=== PATIENT | female | born 2000 | race African-American/Black ===

== ENCOUNTER 2021-01-16 09:10 | Inpatient (IN) | payer OTHER ==
[~2021-01-16 09:10] MED LIST: Bupivacaine 0.25% HCL 30 ML VIAL ONE
[2021-01-16 10:38] VITALS: BMI 25.9
[2021-01-16] MEDS ORDERED: Diphenoxylate HCl/Atropine Tablet PO PRN (11:23)
[2021-01-16] MEDS ORDERED: Misoprostol 200 MCG TAB PR PRN (11:23)
[2021-01-16] MEDS ORDERED: HYDROcodone/Acetaminophen 5/325 mg Tablet PO PRN ×3 (11:23→20:55)
[2021-01-16] MEDS ORDERED: Promethazine HCl 25 MG/ML VIAL IM PRN ×3 (11:23→20:55)
[2021-01-16] MEDS ORDERED: Ondansetron PF 4 MG/2 ML Vial IVP PRN ×3 (11:23→20:55)
[2021-01-16] MEDS ORDERED: Lidocaine 1% (PF) 30 ML VIAL SC PRN (11:23)
[2021-01-16] MEDS ORDERED: hydrALAZINE 20 MG/ML VIAL SLOW IVP PRN ×2 (11:23→20:55)
[2021-01-16] MEDS ORDERED: Methylergonovine 0.2 MG/ML VIAL IM PRN (11:23)
[2021-01-16] MEDS ORDERED: Ibuprofen 800 MG TAB PO PRN (11:23)
[2021-01-16] MEDS ORDERED: Carboprost 250 MCG/ML AMP IM PRN (11:23)
[2021-01-16] MEDS ORDERED: Acetaminophen 500 MG TAB PO PRN (11:23)
[2021-01-16 11:25] LABS: Hemoglobin 9.3 g/dL (12.0-15.5); Mean Corpuscular HGB CONC 30.9 g/dL (32.0-36.0); Mean Corpuscular Hemoglobin 23.8 pg (27.0-33.0); Mean Platelet Volume 10.6 fl (7.4-10.4); Platelet Count 261 10x3/uL (150-450); RBC Distribution Width 15.1 % (11.5-14.5); Red Blood Cell (RBC) Count 3.91 10x6/uL (3.90-5.03); White Blood Cell (WBC) Count 14.2 10x3/uL (3.5-10.5)
[2021-01-16] MEDS ORDERED: NS w/ Oxytocin 30 units 500 ML IV SCH ×3 (11:30→20:55)
[2021-01-16] MEDS ORDERED: Lactated Ringer's 1,000 ML IV SCH (11:30)
[2021-01-16] MEDS ORDERED: NS w/ Oxytocin 30 units 500 ML IVPB SCH (11:30)
[2021-01-16] MEDS: Butorphanol Tartrate 1 MG/ML VIAL SLOW IVP PRN ×2 (11:49→13:00)
[2021-01-16 12:07] LABS: Hep B Surf Ag Non-Reactive S/CO (NonReactive)
[2021-01-16 12:08] LABS: Syphilis Antibody Nonreactive (Nonreactive); Syphilis Antibody Index 0.04 S/CO (<1.00 Non-Reactive)
[2021-01-16 12:49] LABS: SARS-CoV-2 NAA Rapid Test DETECTED (NotDetected)
[2021-01-16] MEDS ORDERED: Fentanyl 2 mcg/Bup 0.1% Cadd 100 ML ONE (13:07)
[2021-01-16] MEDS ORDERED: Lactated Ringer's 500 ML IV PRN (13:56)
[2021-01-16] MEDS ORDERED: Hydrocerin (Eucerin) Cream 120 gm Jar TOP PRN (13:56)
[2021-01-16] MEDS ORDERED: Acetaminophen 325 MG TAB PO PRN (13:56)
[2021-01-16] MEDS ORDERED: diphenhydrAMINE 50 MG/ML VIAL IVP PRN (13:56)
[2021-01-16] MEDS ORDERED: Naloxone HCl 0.4 mg/ml Vial IVP PRN ×2 (13:56)
[2021-01-16] MEDS ORDERED: ePHEDrine Sulfate 50 MG/10 ML VIAL SLOW IVP PRN (13:56)
[2021-01-16] MEDS ORDERED: Fentanyl 2 mcg/Bupivacaine 0.1% Cassette 100 ML EPIDURAL SCH (14:00)
[2021-01-16] MEDS ORDERED: Communication Order-Pharmacy FS PRN (14:00)
[2021-01-16] MEDS ORDERED: Oxytocin 10 UNITS/ML VIAL ONE (17:48)
[2021-01-16] MEDS ORDERED: diphenhydrAMINE 25 MG CAP PO PRN (20:55)
[2021-01-16] MEDS ORDERED: Boostrix 0.5 ML (Tdap) VIAL IM ONE (20:55)
[2021-01-16] MEDS ORDERED: Bisacodyl 10 MG SUPP PR PRN (20:55)
[2021-01-16] MEDS ORDERED: Milk Of Magnesia 30 ML UDCUP PO PRN (20:55)
[2021-01-16] MEDS ORDERED: Lanolin Ointment 7 GM TUBE TOP PRN (20:55)
[2021-01-16] MEDS: Docusate Calcium (SURFAK) 240 MG CAP PO SCH (21:36)
[2021-01-16] MEDS: Ibuprofen 800 MG TAB PO SCH (21:37)
[2021-01-17] MEDS ORDERED: Famotidine 20 MG TAB PO SCH (01:15)
[2021-01-17] MEDS: Ibuprofen 800 MG TAB PO SCH ×3 (04:58→21:10)
[2021-01-17] MEDS: Docusate Calcium (SURFAK) 240 MG CAP PO SCH ×2 (08:17→21:10)
[2021-01-17] MEDS: Famotidine 20 MG TAB PO SCH ×2 (08:17→21:10)
[2021-01-17] MEDS: Prenatal Vitamin 1 TAB PO SCH (08:17)
[2021-01-17] MEDS: Ferrous Sulfate 325 MG TAB PO SCH ×2 (08:17→17:43)
[2021-01-17] MEDS: Benzocaine-Menthol 82.5 ML CAN TOP PRN ×2 (08:21→23:33)
[2021-01-18] MEDS: Ibuprofen 800 MG TAB PO SCH ×2 (05:05→17:30)
[2021-01-18] MEDS: Ferrous Sulfate 325 MG TAB PO SCH ×2 (17:30→18:40)
[2021-01-18] MEDS: Docusate Calcium (SURFAK) 240 MG CAP PO SCH ×2 (18:40→21:46)
[2021-01-18] MEDS: Famotidine 20 MG TAB PO SCH ×2 (18:40→21:46)
[2021-01-18] MEDS: Prenatal Vitamin 1 TAB PO SCH (18:40)
[2021-01-19] MEDS: Ibuprofen 800 MG TAB PO SCH ×2 (00:53→03:11)
[2021-01-19 07:58] VITALS: BP 118/66; TEMP 98.8
[2021-01-19] MEDS: Ferrous Sulfate 325 MG TAB PO SCH (08:34)
[2021-01-19] MEDS: Docusate Calcium (SURFAK) 240 MG CAP PO SCH (08:34)
[2021-01-19] MEDS: Prenatal Vitamin 1 TAB PO SCH (08:35)
[2021-01-19] MEDS: Famotidine 20 MG TAB PO SCH (08:35)
== END 2021-01-19 13:15 | disposition home or self-care (01) | DRG 805 ==
LOC: CSHLD/OP 09:10 → CSHLD 17:31 → CSHPP 20:46
PROVIDERS: ADMIT Family Medicine; ATTEND Family Medicine
PROC: 10E0XZZ Delivery of Products of Conception, External Approach (ICD-10-PCS; principal; 2021-01-16)
PROC: 0KQM0ZZ Repair Perineum Muscle, Open Approach (ICD-10-PCS; 2021-01-16)
PROC: 0W8NXZZ Division of Female Perineum, External Approach (ICD-10-PCS; 2021-01-16)
DX: O98.52 Other viral diseases complicating childbirth (principal); U07.1 COVID-19; Z37.0 Single live birth; O70.1 Second degree perineal laceration during delivery; Z3A.39 39 weeks gestation of pregnancy
CPT/HCPCS: 36415; 51702; 85027; 86780; 87340; 99285; J0595; J2590; S0020; U0002

== ENCOUNTER 2021-02-20 09:26 | Emergency (ER) | payer OTHER ==
[2021-02-20 11:37] LABS: Hemoglobin 11.1 g/dL (12.0-15.5); Mean Corpuscular HGB CONC 30.6 g/dL (32.0-36.0); Mean Corpuscular Hemoglobin 23.5 pg (27.0-33.0); Mean Corpuscular Volume 76.7 fl (81.6-98.3); Mean Platelet Volume 9.4 fl (7.4-10.4); Platelet Count 277 10x3/uL (150-450); RBC Distribution Width 17.9 % (11.5-14.5); Red Blood Cell (RBC) Count 4.73 10x6/uL (3.90-5.03); White Blood Cell (WBC) Count 6.5 10x3/uL (3.5-10.5)
[2021-02-20 11:57] LABS: MDiff Complete? YES
[2021-02-20 12:00] LABS: Eosinophils 2 % (0-10); Lymphocytes 25 % (28-48); Monocytes 15 % (0-4); Neutrophil 58 % (31-61)
[2021-02-20 12:02] LABS: Ovalocytes SLIGHT = 2-5 cells (100X) (0-1/hpf)
[2021-02-20 12:03] LABS: Platelet Morphology Comment Appears Adequate
[2021-02-20 22:56] LABS: SARS-CoV-2 PCR by NAA Not Detected (NotDetected)
== END 2021-02-20 12:25 | disposition home or self-care (01) ==
LOC: CSHERS 09:26
DX: N93.9 Abnormal uterine and vaginal bleeding, unspecified (principal); Z20.822 Contact with and (suspected) exposure to COVID-19
CPT/HCPCS: 36415; 85025; 99284; U0003; U0005